=== PATIENT | male | born 1990 | race African-American/Black ===

== ENCOUNTER 2017-12-13 17:49 | Emergency (ER) | payer MEDICAID ==
[~2017-12-13] VITALS: Ht 180.3 cm; Wt 86.2 kg
[2017-12-13 17:56] VITALS: BP 134/72
[2017-12-13] MEDS ORDERED: TYLENOL EXTRA500 MG ORAL (18:31)
--- NOTE | 2017-12-13 18:31 | Emergency Room Report ---
History of Present Illness General Chief Complaint: Head Injury Source: Patient Present Illness HPI 27-year-old male patient presents ER complaining of head trauma. Reports that he bumped his head against a hanging chandelier while playing with his kids. Denies vision changes, vomiting, loss of consciousness. Denies other acute symptoms. Reports he called a nursing hotline and they instructed in reports the ER. Reports he took ibuprofen for pain which helped alleviate symptoms. Denies bleeding or open wounds. Denies other acute symptoms. Denies fever, chest pain, shortness of breath. Allergies: Coded Allergies: No Known Allergies (Unverified , 12/13/17) Patient History Past Medical History: see triage record Reviewed Nursing Documentation: PMH: Agreed; PSxH: Agreed Nursing Documentation-PMH Past Medical History: No Stated History Review of Systems All Other Systems: negative except mentioned in HPI Physical Exam Vital Signs Date Time Temp Pulse Resp B/P (MAP) Pulse Ox O2 Delivery O2 Flow Rate FiO2 12/13/17 17:56 98.0 78 18 134/72 97 Room Air 98.0 Sp02 EP Interpretation: reviewed, normal General Appearance: well appearing, no apparent distress, alert, GCS 15, non- toxic Head: normocephalic, atraumatic, other - no skull depression, no hematoma, no swelling or erythema, no abrasion, negative Benjamin sign, negative raccoon eyes Eyes: bilateral eye normal inspection, bilateral eye PERRL ENT: hearing grossly normal, normal pharynx, no angioedema, normal voice, TMs + canals normal - no hemotympanum bilaterally, uvula midline, moist mucus membranes, other - no rhinorrhea Neck: full range of motion Respiratory: lungs clear, normal breath sounds, no rhonchi, no respiratory distress, no accessory muscle use, no wheezing, speaking full sentences Cardiovascular #1: regular rate, rhythm, no edema Musculoskeletal: back normal, digits/nails normal, gait/station normal, normal range of motion, non-tender Neurologic: alert, oriented x3, responsive, side laster III-XII nml as tested, motor strength/tone normal, sensory intact, cerebellar normal, normal gait, speech normal Psychiatric: mood/affect normal Skin: no rash Lymphatic: no adenopathy Medical Decision Making PA Attestation Dr. Trujillo is my supervising Physician whom patient management has been discussed with. Diagnostic Impression: Primary Impression: Acute head injury ER Course Pt presents to ED c/o laceration on posterior scalp s/p fall. DDX considered but are not limited to laceration, abrasion, contusion, cellulitis, ICH, skull fracture. VITAL SIGNS are WNL, patient is afebrile ED INTERVENTIONS: Physical exam benign, cranial nerves intact as tested, no focal neuro deficits, no hematoma, negative Benjamin sign, negative raccoon eyes, does not require imaging of head at this time. Continue to monitor for symptoms of possible concussion, including but not limited to somnolence, photophobia, vomiting, vision changes. Return to ER for new or worsening symptoms. Take Tylenol for pain symptoms, easier on GI system than Ibuprofen. Apply ice pack to site on injury on head to prevent swelling. Patient OK for discharge to home. Patient resting comfortably, in no acute distress, nontoxic appearing, smiling, able to ambulate independently without difficulty. DISCHARGE: Rx provided for Tylenol At this time pt is stable for d/c to home. Patient resting comfortably, in no acute distress, nontoxic appearing, talking without difficulty. Will provide with patient care instructions and any necessary prescriptions. Patient to take medication as instructed. Care plan and follow-up instructions provided. Patient questions asked and answered. Patient reports understanding and agrement to treatment plan. Patient instructed to follow-up with primary care provider in 3-5 days for further treatment and referral. ER precautions given. Patient instructed to return to ER immediately for any new or worsening of symptoms. - Please note that this Emergency Department Report was dictated using [employer] car driver technology software, occasionally this can lead to erroneous entry secondary to interpretation by the dictation equipment. Last Vital Signs Date Time Temp Pulse Resp B/P (MAP) Pulse Ox O2 Delivery O2 Flow Rate FiO2 12/13/17 17:56 98.0 78 18 134/72 97 Room Air 98.1 Disposition: HOME, SELF-CARE Condition: Stable Scripts Acetaminophen* (TYLENOL EXTRA STRENGTH*) 500 Mg Tablet 500 MG ORAL Q8H PRN for Prn Headache/Temp > 101, #30 TAB 0 Refills Prov: Morgan Khan 12/13/17 Patient Instructions: Head Injury, Adult, [id number] Additional Instructions: Followup with primary care provider in 3 -5 days. Discuss further referral and treatment as needed discuss referral to neurology due to history of head trauma and did not follow up at that time. Take medications as directed. Patient questions asked and answered. ER precautions given, patient instructed to return to ER immediately for any new or worsening of symptoms, including but not limited to intractable vomiting , vision loss, photophobia, chest pain, shortness of breath, somnolence. Morgan Khan Dec 13, 2017 18:31
[2017-12-13 18:42] VITALS: BP 127/68
== END 2017-12-13 18:42 | disposition home or self-care (01) ==
LOC: EMR 18:27
DX: S09.90XA Unspecified injury of head, initial encounter (principal); W22.8XXA Striking against or struck by other objects, initial encounter; Y93.83 Activity, rough housing and horseplay; Y92.9 Unspecified place or not applicable
CPT/HCPCS: 99283